=== PATIENT | female | born 1960 ===

== ENCOUNTER 2017-06-08 09:34 | Emergency (ER) | payer BC, OTHER ==
[2017-06-08 10:11] VITALS: BP 155/92
[2017-06-08] MEDS ORDERED: HYDROcodone/ACETAMIN 5-325 MG* 1 TAB PO ONE (10:17)
[2017-06-08] MEDS ORDERED: Tetan/Diph/Pertus SYR(Tdap)* 0.5 ML SYR(BOOSTRIX) use SYR IM ONE (10:18)
--- NOTE | 2017-06-08 10:19 | UC ---
Hand/Wrist HPI - HPI Summary HPI Summary: got right wrist caught in school bus door this morning pain abd swelling with small abrasion (unsure date of last tetanus) - History Of Current Complaint Chief Complaint: UCUpperExtremity Stated Complaint: RT HAND COMPLAINT W/C Time Seen by Provider: 06/08/17 10:13 Hx Obtained From: Patient Hx Last Menstrual Period: 2007 ?: No Mechanism Of Injury: crush injury Onset/Duration: Sudden Onset, Lasting Hours Severity Initially: Severe Severity Currently: Severe Pain Intensity: 10 Pain Scale Used: 0-10 Numeric Character Of Pain: Aching, Throbbing Aggravating Factor(s): Movement Alleviating Factor(s): Nothing Associated Signs And Symptoms: Positive: Swelling, Bruising Related History: Dominant Hand Right - Allergies/Home Medications Allergies/Adverse Reactions: Allergies Allergy/AdvReac Type Severity Reaction Status Date / Time Sulfa (Sulfonamide Allergy Hives Verified 06/08/17 10:00 Antibiotics) sea food Allergy Intermediate Hives Uncoded 06/08/17 10:00 PMH/Surg Hx/FS Hx/Imm Hx Previously Healthy: No Psychological History: Depression - Surgical History Surgical History: Yes Surgery Procedure, Year, and Place: 1979-KIDNEY SURGERY. TONSILS- 1975. GALLBLADDER-2006. -&TUBAL-2002. RIGHT BREAST MASTECTOMY-2007,. bariatric surgery. RIGHT WRIST SX--2015 - Family History Known Family History: Positive: None - Social History Occupation: Employed Part-time Lives: With Family Alcohol Use: Occasionally Substance Use Type: None Smoking Status (MU): Never Smoked Tobacco - Immunization History Most Recent Influenza Vaccination: 11/2013 had mist Hx Tetanus, Diphtheria Vaccination: Yes Vaccination Up to Date: Yes Review of Systems Constitutional: Negative Skin: Bruising - right wrist,, Other - skin abrasion right wrist/thumb Eyes: Negative ENT: Negative Respiratory: Negative Cardiovascular: Negative Gastrointestinal: Negative Genitourinary: Negative Motor: Negative Neurovascular: Negative Musculoskeletal: Arthralgia - right wrist Neurological: Negative Psychological: Negative Is Patient Immunocompromised?: No All Other Systems Reviewed And Are Negative: Yes Physical Exam Triage Information Reviewed: Yes Appearance: Well-Appearing, Well-Nourished, Pain Distress Vital Signs: Initial Vital Signs Temp 98.6 F 06/08/17 10:02 Pulse 74 06/08/17 10:02 Resp 18 06/08/17 10:02 BP 155/92 06/08/17 10:02 Pulse Ox 98 06/08/17 10:02 Vital Signs Reviewed: Yes Eye Exam: Normal Eyes: Positive: Conjunctiva Clear ENT Exam: Normal ENT: Positive: Normal ENT inspection, Hearing grossly normal. Negative: Trismus , Muffled voice, Hoarse voice Dental Exam: Normal Neck exam: Normal Neck: Positive: Supple, Nontender Respiratory Exam: Normal Respiratory: Positive: Chest non-tender, No respiratory distress, No accessory muscle use Cardiovascular Exam: Normal Cardiovascular: Positive: RRR, Pulses Normal, Brisk Capillary Refill Musculoskeletal Exam: Normal Musculoskeletal: Positive: Strength Intact, ROM Intact, Edema @ - radial side of right wrist Neurological Exam: Normal Psychological Exam: Normal Skin Exam: Other Skin: Positive: Other - abrasion right thumb Diagnostics - Radiology No standard instances Xray Interpretation: No Acute Changes Radiology Interpretation Completed By: ED Physician, Radiologist Hand/Wrist Course/Dx - Course Course Of Treatment: greer, splint, up date tetanus, rice, ibuprofen, follow with ortho prn and follow blood pressure with pcp - Differential Dx/Diagnosis Provider Diagnoses: right wrist contusion and abrasion, up date tetanus, elevated blood pressure with out dx of hyperetension Discharge - Discharge Plan Condition: Stable Disposition: HOME Patient Education Materials: Ibuprofen (By mouth), Contusion in Adults (ED), Abrasion (ED), Hypertension (ED) Referrals: German Smiley MD [Medical Doctor] - If Needed Tani Coyle DO [Primary Care Provider] - 2 Weeks
--- NOTE | 2017-06-08 10:43 | RAD ---
INDICATION: Right hand injury. TECHNIQUE: 4 views of the right hand were obtained. FINDINGS: There is lateral soft tissue swelling. The bones are normal alignment. No fracture is seen. 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 IMPRESSION: NO EVIDENCE FOR FRACTURE, IF THE PATIENT'S SYMPTOMS PERSIST RECOMMEND FOLLOW-UP IMAGING.
== END 2017-06-08 11:11 | disposition home or self-care (01) ==
LOC: UCCORT 09:34
DX: S60.811A Abrasion of right wrist, initial encounter (principal); W23.0XXA Caught, crushed, jammed, or pinched between moving objects, initial encounter; Y93.9 Activity, unspecified; Y92.811 Bus as the place of occurrence of the external cause; Z23 Encounter for immunization; R03.0 Elevated blood-pressure reading, without diagnosis of hypertension; Z88.2 Allergy status to sulfonamides; Z91.013 Allergy to seafood
CPT/HCPCS: 90471; 90715; 99213; G0463

== ENCOUNTER → 2018-09-05 06:21 | Day surgery (SDC) | payer BC ==
[~2018-09-05 06:21] MED LIST: Buffered Lidocaine 1% SYRIN* 1 ML/SYRINGE INTRADERM ONE; Bupivacaine 0.25% SDV PF* 10 ML VIAL INJ ONE; Lactated Ringers 1000 ML Bag* 1,000 ML IV SCH; Midazolam* 1 MG/ML 5 ML VIAL (5 MG) ONE; Naloxone* 0.4 MG/ML 1 ML VIAL IV PRN; fentaNYL* 50 MCG/ML 2 ML VIAL (100 MCG VIAL) ONE
[2018-09-05 08:52] VITALS: BP 140/70
--- NOTE | 2018-09-05 16:01 | OP ---
DATE OF OPERATION: 09/05/18 [facility] DATE OF : 56 SURGEON: Chepe An MD. SHANK CEMENTER HAND: BETH Naylor. ANESTHESIOLOGIST: Dr. aVrela. ANESTHESIA: Local MAC. PRE-OP DIAGNOSIS: Left long finger mucous cyst. POST-OP DIAGNOSIS: Left long finger mucous cyst. OPERATIVE PROCEDURE: Excision of left long finger mucous cyst. ESTIMATED BLOOD LOSS: 10 mL. COMPLICATIONS: None. FINDINGS: See above and below. INDICATIONS: Akilah has the aforementioned cyst. We talked about the risks and benefits. She wanted to proceed with surgery. DESCRIPTION OF PROCEDURE: Akilah was seen in the preoperative holding area. The correct side and site of the procedure were identified. We came back to the operating room and I performed a digital block with 0.25% plain Marcaine. The arm was prepped and draped in the usual fashion. A time-out was performed. I placed a finger tourniquet on the finger. I made a T-shaped incision over the ulnar aspect of the joint, where the cyst was. The mucous cyst was peeled off of the paratenon, to which it was superficial and that was tracked back down to the gutter just adjacent to the terminal extensor tendon next to the collateral ligament. It was amputated there with a Bovie cautery device. The capsule there was cauterized. Everything was cleaned up. At this point, the finger was looking good. The wound was irrigated out. Skin was closed with 4- 0 nylon suture. Soft dressing was applied. Finger tourniquet was removed. She was taken to the recovery room in stable condition. [id number]/[facility] #: [id number] F F THOMPSON HOSPITALRobin
== END | disposition home or self-care (01) ==
LOC: OREAST 06:21
PROVIDERS: ATTEND Orthopaedic Surgery Hand Surgery
DX: M67.442 Ganglion, left hand (principal); Z85.3 Personal history of malignant neoplasm of breast; F41.8 Other specified anxiety disorders; E66.9 Obesity, unspecified
CPT/HCPCS: 88304; J2250; J3010; J3490

== ENCOUNTER 2019-03-28 13:12 | Emergency (ER) | payer BC ==
--- OUTSIDE RECORDS SUMMARY | 2019-03-28 14:47 | XMS REPORT | Continuity of Care Document ---
:1960 External Reference #:[id number] Author Name Scout Echavarria (transmitted by agent of provider Tani Coyle) Address [address] [place] [address] Care Team Providers Name Role Phone HCP/LW on file Care Team Information Gift Manager Unavailable Ha Alas MD - Gastroenterology Care Team Information Gift Manager Problems Active Problems Provider Date Allergic rhinitis due to pollen Scout Echavarria Onset: 09/01/2013 Moderate recurrent major depression Tani Coyle D.O. Onset: 01/22/2014 Social History Type Date Description Comments Sex Unknown Tobacco Use Reviewed: 03/20/14 Denies Cigarette Use Smoking Status Reviewed: 03/21/19 Denies Cigarette Use ETOH Use Occassional Alcohol Recreational Drug Use Current Drug User Tobacco Use Start: Unknown Patient has never smoked Sun Exposure Uses sunscreen Allergies, Adverse Reactions, Alerts Active Allergies Reaction Severity Comments Date Sulfa Rash 09/01/2013 Seafood Urticaria shellfish 09/01/2013 Iodine 11/15/2013 Medications Active Medications SIG Qnty Indications Ordering Provider Date Lisinopril 1 by mouth every 90tabs R03.0 Chaz Jacques, 03/21/2019 5mg Tablets day M.D. Triamcinolone apply 2-3 times 15gm L29.8 Chaz Jacques, 03/21/2019 Acetonide a day M.D. 0.5% Cream Fluticasone Propionate two sprays (50 16gm J01.00 Chaz Jacques, 2018 mcg/spray) per M.D. 50mcg/Act Suspension nostril once daily Probiotics one po daily Unknown 12/30/2017 Vitamin B-12 1 daily Unknown 04/11/2015 1000mcg (sublingually) Tablets Sub Venlafaxine HCL ER Take 1 Capsule 90caps Chaz Jacques, 09/22/2013 150mg By Mouth Every M.D. Caps ER 24HR Day Dianelys Allergy 1 po qd, prn OTC Unknown 180mg Tablets History Medications Amoxicillin/Clavulanate 1 twice a 20tabs J01.00 Sawyer, 01/13/2019 - Potassium day x 10 Sirena Ware 03/20/2019 875-125mg Tablets days Immunizations CPT Code Status Date Vaccine Lot # [id number] Given 11/19/2018 Influenza Virus Vaccine, Quadrivalent, Split, Preservative Free 73842 Given 12/31/2017 Influenza Virus Vaccine, Quadrivalent, Split, [id number] Preservative Free 47309 Given 01/01/2017 Influenza Virus Vaccine, Quadrivalent, Split, [id number] Preservative Free 04091 Given 2015 Influenza Virus Vaccine, Quadrivalent, Split, [id number] Preservative Free 97199 Given 12/29/2014 Influenza Virus Vaccine, Quadrivalent, Split, [id number] Preservative Free 27201 Given 04/17/2014 Zostavax [id number] 49938 Given 12/10/2013 flu mist - live influenza virus vaccine for intranasal use U-Td Given 08/06/2013 Td(Adult),Unspecified 41272 Ordered 09/01/2009 Adacel or Boostrix, TDaP [id number] Ordered 01/01/2013 Flu, Split Virus 3Yrs Vital Signs Date Vital Result Comment 03/21/2019 2:51pm BP Systolic 164 mmHg BP Diastolic 100 mmHg BP Systolic Recheck 150 mmHg BP Diastolic Recheck 90 mmHg Height 61.5 inches 5'1.50" Weight 168.00 lb BMI (Body Mass Index) 31.2 kg/m2 01/13/2019 2:09pm BP Systolic 134 mmHg BP Diastolic 94 mmHg BP Systolic Recheck 134 mmHg BP Diastolic Recheck 88 mmHg Body Temperature 98.2 F Results Test Acquired Date Facility Test Result H/L Range Note Laboratory test 03/21/2019 [facility] <pending> finding [phone] U[facility] Inhouse 03/21/2019 In House Ua Glucose - 1 Ua Bilirubin - Ua Ketones - Ua Specific [place] 1.030 Ua Blood 2+ Ua PH 6.0 Ua Protein tr Ua Urobilinogen - Ua Nitrite - Ua Leukocytes tr Culture Urine 03/21/2019 In House Colonies 12/24 mixed Inhouse Order 03/21/2019 [facility] Occult Blood, F I T <pending> (Fecal Immunochemical Test) 1 void, clear, yellow Procedures Date Code Description Status 02/04/2018 [id number] Mammogram Completed 02/22/49 [id number] Colonoscopy Completed Medical Devices Description No Information Available Encounters Type Date Location Provider Dx Diagnosis Office Visit 01/13/2019 Main Office Yodit Griffiths J01.00 Acute maxillary 2:00p P.A. sinusitis, unspecified Assessments Date Code Description Provider 03/21/2019 L29.8 Other pruritus Yodit Griffiths P.A. 03/21/2019 R03.0 Elevated blood-pressure reading, without Yodit Griffiths, P.A. diagnosis of hypertension 03/21/2019 Z12.11 Encounter for screening for malignant neoplasm Yodit Griffiths P.A. of colon 03/21/2019 Z98.84 Bariatric surgery status Yodit Griffiths P.A. 03/21/2019 D26.0 Other benign neoplasm of cervix uteri Yodit Griffiths P.A. 03/21/2019 Z00.01 Encounter for general adult medical examination Yodit Griffiths P.A. with abnormal findings 03/21/2019 R31.9 Hematuria, unspecified Yodit Griffiths, P.A. 03/21/2019 Z68.31 Body mass index (BMI) 31.0-31.9, adult Yodit Griffiths, P.A. 01/13/2019 J01.00 Acute maxillary sinusitis, unspecified Yodit Griffiths, P.A. Plan of Treatment Future Appointment(s):05/01/2019 9:45 am - Marjorie Summers PA at Main Hngsjg4207/2017 - Yodit Griffiths P.A.Z01.818 Encounter for other preprocedural examinationComments:Patient is low risk for surgery planned.they have no prior anaesthetic related complications.they are advised to inform their surgeon of any acute illness which may occur between now and surgical date. Pre operative labs are not available to me as of this date. the surgeon and anaesthetist will need to review these prior to surgery and notify me of any questions Cleared for planned surgery.N20.0 Calculus of yrfdgtU71.84 Bariatric surgery status Functional Status Description No Information Available Mental Status Description No Information Available Referrals Refer to Reason for Referral Status Appt Date Ha Alas MD screening colonscopy Consult and Testing - Sent Specialist [facility] [address] [address] [phone] [facility] pt wants to go to Dr. Huitron who is Created now with N for color paste mixer consult for significant size Nabothian cyst [address] [place] [address] [phone]
--- OUTSIDE RECORDS SUMMARY | 2019-03-28 14:47 | XMS REPORT | Continuity of Care Document ---
:1960 External Reference #:[id number] Author Name Scout Echavarria (transmitted by agent of provider Tani Coyle) Address [address] [place] [address] Care Team Providers Name Role Phone HCP/LW on file Care Team Information Line Pilot Unavailable Ha Alas MD - Gastroenterology Care Team Information Line Pilot Problems Active Problems Provider Date Allergic rhinitis due to pollen Scout Echavarria Onset: 09/01/2013 Moderate recurrent major depression Tani Coyel D.O. Onset: 01/22/2014 Social History Type Date [...] CPT Code Status Date Vaccine Lot # [id number] Given 11/19/2018 Influenza Virus Vaccine, Quadrivalent, Split, Preservative Free 67400 Given 12/31/2017 Influenza Virus Vaccine, Quadrivalent, Split, [id number] Preservative Free 80092 Given 01/01/2017 Influenza Virus Vaccine, Quadrivalent, Split, [id number] Preservative Free 98060 Given 2015 Influenza Virus Vaccine, Quadrivalent, Split, [id number] Preservative Free 66848 Given 12/29/2014 Influenza Virus Vaccine, Quadrivalent, Split, [id number] Preservative Free 42295 Given 04/17/2014 Zostavax [id number] 52807 Given 12/10/2013 flu mist - live influenza virus vaccine for intranasal use U-Td Given 08/06/2013 Td(Adult),Unspecified 82936 Ordered 09/01/2009 Adacel or Boostrix, TDaP 40381 Ordered 01/01/2013 Flu, Split Virus 3Yrs Vital [...] Result H/L Range Note Laboratory test 03/21/2019 [facility] <pending> finding [phone] Ua Inhouse 03/21/2019 In House Ua Glucose - 1 Ua Bilirubin - Ua Ketones - Ua Specific [place] 1.030 Ua Blood 2+ Ua PH 6.0 Ua Protein tr Ua Urobilinogen - Ua Nitrite - Ua Leukocytes tr Culture Urine 03/21/2019 In House Colonies 12/24 mixed Inhouse Order 03/21/2019 [facility] Occult Blood, F I T <pending> (Fecal Immunochemical Test) 1 void, clear, yellow Procedures Date Code Description Status 02/04/2018 [id number] Mammogram Completed 02/22/49 [id number] Colonoscopy Completed Medical Devices Description No Information Available Encounters Type Date Location Provider Dx Diagnosis Office Visit 01/13/2019 Main Office Yodit Griffiths J01.00 Acute maxillary 2:00p P.A. sinusitis, unspecified Assessments Date Code Description Provider 03/21/2019 L29.8 Other pruritus Yodit Griffiths P.ARadha 03/21/2019 R03.0 Elevated blood-pressure reading, without Yodit Griffiths P.ARadha diagnosis of hypertension 03/21/2019 Z12.11 Encounter for screening for malignant neoplasm Scout Echavarria of colon 03/21/2019 Z98.84 Bariatric surgery status Yodit Griffiths P.A. 03/21/2019 D26.0 Other benign neoplasm of cervix uteri Yodit Griffiths P.ARadha 03/21/2019 Z00.01 Encounter for general adult medical examination Scout Echavarria with abnormal findings 03/21/2019 R31.9 Hematuria, unspecified Yodit Griffiths P.A. 03/21/2019 Z68.31 Body mass index (BMI) 31.0-31.9, adult Yodit Griffiths P.A. 01/13/2019 J01.00 Acute maxillary sinusitis, unspecified Yodit Griffiths P.A. Plan of Treatment Future Appointment(s):05/01/2019 9:45 am - Marjorie Summers PA at Main [id number] - Scout EchavarriaL29.8 Other pruritusNew Medication:Triamcinolone Acetonide 0.5 % - apply 2-3 times a dayFollow up:let me know if the steroid cream is expensive, can try over the counter 1% cortisone cream stop cream as rash resolves use thick cream or emollient agent like Aquaphor when gnihzmyxK65.0 Elevated blood-pressure reading, without diagnosis of hypertensionNew Medication:Lisinopril 5 mg - 1 by mouth every dayFollow up:6 weeks, try keeping some BPs at homeZ12.11 Encounter for screening for malignant neoplasm of colonReferral:Ha Alas MD, GastroenterologyFollow up:return FIT this by end of yearZ98.84 Bariatric surgery statusFollow up:look into when your last tetanus show wasD26.0 Other benign neoplasm of cervix uteriComments: Looks like 0.75 cm Nabothian cystReferral:[facility] [place], chief cruiser/ Phys/YhakgA47.01 Encounter for general adult medical examination with abnormal dtwimhljR29.9 Hematuria, nueefbxskgqD25.31 Body mass index (BMI) 31.0-31.9, adult Functional Status Description No Information Available Mental Status Description No Information Available Referrals Refer to Dr Reason for Referral Status Appt Date Ha Alas MD screening colonscopy Consult and Testing - Sent Specialist decides [facility] [address] [address] [phone] [facility] pt wants to go to Dr. Huitron who is Created now with N for ob/gyn physician consult for significant size Nabothian cyst [address] [place] [id number] [phone]
--- OUTSIDE RECORDS SUMMARY | 2019-03-28 14:47 | XMS REPORT | Continuity of Care Document ---
:1960 External Reference #:[id number] Author Name Scout Echavarria (transmitted by agent of provider Tani Coyle) Address [address] [place] [address] Care Team Providers Name Role Phone HCP/LW on file Care Team Information Mine Expert Unavailable Ha Alas MD - Gastroenterology Care Team Information Mine Expert [phone] Problems Active Problems Provider Date Allergic rhinitis [...] CPT Code Status Date Vaccine Lot # [id number] Given 11/19/2018 Influenza Virus Vaccine, Quadrivalent, Split, Preservative Free 12037 Given 12/31/2017 Influenza Virus Vaccine, Quadrivalent, Split, [id number] Preservative Free 01051 Given 01/01/2017 Influenza Virus Vaccine, Quadrivalent, Split, [id number] Preservative Free 05124 Given 2015 Influenza Virus Vaccine, Quadrivalent, Split, [id number] Preservative Free 89632 Given 12/29/2014 Influenza Virus Vaccine, Quadrivalent, Split, [id number] Preservative Free 34396 Given 04/17/2014 Zostavax [id number] 24048 Given 12/10/2013 flu mist - live influenza virus vaccine for intranasal use U-Td Given 08/06/2013 Td(Adult),Unspecified 72194 Ordered 09/01/2009 Adacel or Boostrix, TDaP 46071 Ordered 01/01/2013 Flu, Split Virus 3Yrs Vital [...] Result H/L Range Note Laboratory test 03/21/2019 [facility] <pending> finding [phone] Ua Inhouse 03/21/2019 In House Ua Glucose - 1 Ua Bilirubin - Ua Ketones - Ua Specific [place] 1.030 Ua Blood 2+ Ua PH 6.0 Ua Protein tr Ua Urobilinogen - Ua Nitrite - Ua Leukocytes tr Culture Urine 03/21/2019 In House Colonies 12/24 mixed Inhouse Order 03/21/2019 [facility] Occult Blood, F I T <pending> (Fecal Immunochemical Test) 1 void, clear, yellow Procedures Date Code Description Status 02/04/2018 [id number] Mammogram Completed 02/22/49 [id number] Colonoscopy Completed Medical Devices Description No Information [...] 01/13/2019 J01.00 Acute maxillary sinusitis, unspecified Yodit Penale, P.A. Plan of Treatment Future Appointment(s):05/01/2019 9:45 am - Marjorie Summers PA at Main Lgdfll9710/2017 - Yodit Griffiths P.A.D48.5 Neoplasm of uncertain behavior of skinReferral:Lidia Daugherty MD, Surgery,OrthopedicFollow up:Can ask dermotologist about whether they will remove this mucoid cyst, or we can have you go hand specialist. Dr Daugherty with [facility], and I think she goes to [place] office sometimes.N20.0 Calculus of dtszytH77 Encounter for immunizationComments:Counseling done regarding risks and benefits of fuy vaccine , previous vaccine reactions and possiblecontraindications to vaccine discussed , and pt's questions answered. Pt agreed to vaccination. VISsheets given. Functional Status Description No Information Available Mental Status Description No Information Available Referrals Refer to Dr Reason for Referral Status Appt Date Ha Alas MD screening colonscopy Consult and Testing - Sent Specialist decides [facility] [address] [address] [phone] [facility] [place] pt wants to go to Dr. Huitron who is Created now with [facility] for head of mathematics consult for significant size Nabothian cyst [address] [place] [address] [phone]
--- OUTSIDE RECORDS SUMMARY | 2019-03-28 14:47 | XMS REPORT | Continuity of Care Document ---
:1960 External Reference #:[id number] Author Name Scout Echavarria (transmitted by agent of provider Tani Coyle) Address [address] [place] [address] Care Team Providers Name Role Phone HCP/LW on file Care Team Information Infection Prevention Coordinator Unavailable Ha Alas MD - Gastroenterology Care Team Information Infection Prevention Coordinator [phone] Problems Active Problems Provider Date Allergic rhinitis [...] CPT Code Status Date Vaccine Lot # [id number] Given 11/19/2018 Influenza Virus Vaccine, Quadrivalent, Split, Preservative Free 20596 Given 12/31/2017 Influenza Virus Vaccine, Quadrivalent, Split, [id number] Preservative Free 20291 Given 01/01/2017 Influenza Virus Vaccine, Quadrivalent, Split, [id number] Preservative Free 28871 Given 2015 Influenza Virus Vaccine, Quadrivalent, Split, [id number] Preservative Free 37760 Given 12/29/2014 Influenza Virus Vaccine, Quadrivalent, Split, [id number] Preservative Free 16101 Given 04/17/2014 Zostavax [id number] 02907 Given 12/10/2013 flu mist - live influenza virus vaccine for intranasal use U-Td Given 08/06/2013 Td(Adult),Unspecified 62543 Ordered 09/01/2009 Adacel or Boostrix, TDaP [id number] Ordered 01/01/2013 Flu, Split Virus 3Yrs Vital [...] Result H/L Range Note Laboratory test 03/21/2019 [facility] <pending> finding [phone] Ua Inhouse 03/21/2019 In House Ua Glucose - 1 Ua Bilirubin - Ua Ketones - Ua Specific [place] 1.030 Ua Blood 2+ Ua PH 6.0 Ua Protein tr Ua Urobilinogen - Ua Nitrite - Ua Leukocytes tr Culture Urine 03/21/2019 In House Colonies 12/24 mixed Inhouse Order 03/21/2019 [facility] Occult Blood, F I T <pending> (Fecal Immunochemical Test) 1 void, clear, yellow Procedures Date Code Description Status 02/04/2018 [id number] Mammogram Completed 02/22/49 [id number] Colonoscopy Completed Medical Devices Description No Information [...] am - Marjorie Summers PA at Main [id number] - Scout EchavarriaL29.8 Other pruritusNew Medication:Triamcinolone Acetonide 0.5 % - apply 2-3 times a dayFollow up:let me know if the steroid cream is expensive, can try over the counter 1% cortisone cream stop cream as rash resolves use thick cream or emollient agent like Aquaphor when rboppxxnD16.0 Elevated blood-pressure reading, without diagnosis of hypertensionNew [...] cervix uteriComments: Looks like 0.75 cm Nabothian cystReferral:[facility] [place], cushion assembler/ Phys/XwhjpE98.01 Encounter for general adult medical examination with abnormal cnlnkewgL77.9 Hematuria, hdbqjwjxihiE63.31 Body mass index (BMI) 31.0-31.9, adult Functional Status Description No Information Available Mental Status Description No Information Available Referrals Refer to Dr Reason for Referral Status Appt Date Ha Alas MD screening colonscopy Consult and Testing - Sent Specialist decides [facility] [address] [address] [phone] [facility] pt wants to go to Dr. Huitron who is Created now with N for job placement specialist consult for significant size Nabothian cyst [address] [place] [id number] [phone]
--- OUTSIDE RECORDS SUMMARY | 2019-03-28 14:47 | XMS REPORT | Continuity of Care Document ---
:1960 External Reference #:[id number] Author Name Scout Echavarria (transmitted by agent of provider Tani Coyle) Address [address] [place] [address] Care Team Providers Name Role Phone HCP/LW on file Care Team Information Cofounder Unavailable Ha Alas MD - Gastroenterology Care Team Information Cofounder [phone] Problems Active Problems Provider Date Allergic rhinitis [...] CPT Code Status Date Vaccine Lot # [id number] Given 11/19/2018 Influenza Virus Vaccine, Quadrivalent, Split, Preservative Free 28903 Given 12/31/2017 Influenza Virus Vaccine, Quadrivalent, Split, [id number] Preservative Free 44348 Given 01/01/2017 Influenza Virus Vaccine, Quadrivalent, Split, [id number] Preservative Free 35676 Given 2015 Influenza Virus Vaccine, Quadrivalent, Split, [id number] Preservative Free 15611 Given 12/29/2014 Influenza Virus Vaccine, Quadrivalent, Split, [id number] Preservative Free 41580 Given 04/17/2014 Zostavax [id number] 15784 Given 12/10/2013 flu mist - live influenza virus vaccine for intranasal use U-Td Given 08/06/2013 Td(Adult),Unspecified [id number] Ordered 09/01/2009 Adacel or Boostrix, TDaP [id number] Ordered 01/01/2013 Flu, Split Virus 3Yrs Vital [...] Result H/L Range Note Laboratory test 03/21/2019 [facility] <pending> finding [phone] Ua Inhouse 03/21/2019 In House Ua Glucose - 1 Ua Bilirubin - Ua Ketones - Ua Specific [place] 1.030 Ua Blood 2+ Ua PH 6.0 Ua Protein tr Ua Urobilinogen - Ua Nitrite - Ua Leukocytes tr Culture Urine 03/21/2019 In House Colonies 12/24 mixed Inhouse Order 03/21/2019 [facility] Occult Blood, F I T <pending> (Fecal Immunochemical Test) 1 void, clear, yellow Procedures Date Code Description Status 02/04/2018 [id number] Mammogram Completed [birth year] [id number] Colonoscopy Completed Medical Devices Description No Information [...] am - Marjorie Summers PA at [facility] [id number] - Scout EchavarriaL29.8 Other pruritusNew Medication:Triamcinolone Acetonide 0.5 % - apply 2-3 times a dayFollow up:let me know if the steroid cream is expensive, can try over the counter 1% cortisone cream stop cream as rash resolves use thick cream or emollient agent like Aquaphor when pqwuqlpqD08.0 Elevated blood-pressure reading, without diagnosis of hypertensionNew [...] cervix uteriComments: Looks like 0.75 cm Nabothian cystReferral:[facility], procedures tech/ Phys/GgvsnS47.01 Encounter for general adult medical examination with abnormal mzwqrarfV32.9 Hematuria, ikbxzkatrkwV66.31 Body mass index (BMI) 31.0-31.9, adult Functional Status Description No Information Available Mental Status Description No Information Available Referrals Refer to Dr Reason for Referral Status Appt Date Ha Alas MD screening colonscopy Consult and Testing - Sent Specialist [facility] [address] [address] [phone] [facility] pt wants to go to Dr. Huitron who is Created now with N for office machine servicer consult for significant size Nabothian cyst [address] [id number] [phone]
--- OUTSIDE RECORDS SUMMARY | 2019-03-28 14:47 | XMS REPORT | Continuity of Care Document ---
:1960 External Reference #:[id number] Author Name Scout Echavarria (transmitted by agent of provider Tani Coyle) Address [address] [place] [address] Care Team Providers Name Role Phone HCP/LW on file Care Team Information Supervisor Hot [employer] Tinning Unavailable Ha Alas MD - Gastroenterology Care Team Information Supervisor [employer] [phone] Problems Active Problems Provider Date Allergic rhinitis [...] CPT Code Status Date Vaccine Lot # [id number] Given 11/19/2018 Influenza Virus Vaccine, Quadrivalent, Split, Preservative Free 68448 Given 12/31/2017 Influenza Virus Vaccine, Quadrivalent, Split, [id number] Preservative Free 56090 Given 01/01/2017 Influenza Virus Vaccine, Quadrivalent, Split, [id number] Preservative Free 42319 Given 2015 Influenza Virus Vaccine, Quadrivalent, Split, [id number] Preservative Free 01227 Given 12/29/2014 Influenza Virus Vaccine, Quadrivalent, Split, [id number] Preservative Free 82827 Given 04/17/2014 Zostavax [id number] 20186 Given 12/10/2013 flu mist - live influenza virus vaccine for intranasal use U-Td Given 08/06/2013 Td(Adult),Unspecified 00897 Ordered 09/01/2009 Adacel or Boostrix, TDaP [id number] Ordered 01/01/2013 Flu, Split Virus 3Yrs Vital [...] Result H/L Range Note Laboratory test 03/21/2019 [facility] <pending> finding [phone] Ua Inhouse 03/21/2019 In House Ua Glucose - 1 Ua Bilirubin - Ua Ketones - Ua Specific [place] 1.030 Ua Blood 2+ Ua PH 6.0 Ua Protein tr Ua Urobilinogen - Ua Nitrite - Ua Leukocytes tr Culture Urine 03/21/2019 In House Colonies 12/24 mixed Inhouse Order 03/21/2019 [facility] Occult Blood, F I T <pending> (Fecal Immunochemical Test) 1 void, clear, yellow Procedures Date Code Description Status 02/04/2018 [id number] Mammogram Completed 02/22/49 [id number] Colonoscopy Completed Medical Devices Description No Information [...] Z00.01 Encounter for general adult medical examination Bora Echavarria.Moris with abnormal findings 03/21/2019 R31.9 Hematuria, unspecified Yodit Griffiths P.A. 03/21/2019 Z68.31 Body mass index (BMI) 31.0-31.9, adult Yodit Griffiths P.A. 01/13/2019 J01.00 Acute maxillary sinusitis, unspecified Yodit Griffiths P.A. Plan of Treatment Future Appointment(s):05/01/2019 9:45 am - Marjorie Summers PA at [facility] [id number] - Scout EchavarriaJ01.90 Acute sinusitis, unspecifiedNew Medication: Amoxicillin 875 mg - 1 by mouth twice a day x 10 days for sinusitisFollow up: use the dbgcdveA90.3 FlatulenceComments:disucssed possible causes and approaches to assess. pt will see how Beano works, will monitor diet more closely, discussed can be days btw what she eats and the bloating/gasFollow up: I would try Beano available over the counter and see if it improves mquplhW25.0 Elevated blood-pressure reading, without diagnosis of hypertension Functional Status Description No Information Available Mental Status Description No Information Available Referrals Refer to Reason for Referral Status Appt Date Ha Alas MD screening colonscopy Consult and Testing - Sent Specialist [facility] [address] [address] [phone] [facility] [place] pt wants to go to Dr. Huitron who is Created now with N for crew chief consult for significant size Nabothian cyst [address] [place] [address] [phone]
[2019-03-28 15:07] VITALS: BP 152/86
--- NOTE | 2019-03-28 15:32 | UC ---
Throat Pain/Nasal Jace HPI - HPI Summary HPI Summary: 58-year-old woman comes in with a chief complaint of sore throat. She's had upper respiratory tract infection symptoms for more than a week. Over the last day she developed sore throat and has been exposed to people with strep throat. It hurts to swallow. She has sinus pressure rhinorrhea is yellow. No complaint of any shortness breath. - History of Current Complaint Chief Complaint: UCGeneralIllness Stated Complaint: SORE THROAT SINUS Time Seen by Provider: 03/28/19 14:53 Hx Last Menstrual Period: 2007 Pain Intensity: 8 - Allergies/Home Medications Allergies/Adverse Reactions: Allergies Allergy/AdvReac Type Severity Reaction Status Date / Time Sulfa (Sulfonamide Allergy Hives Verified 03/28/19 15:08 Antibiotics) sea food Allergy Intermediate Hives Uncoded 03/28/19 15:08 PMH/Surg Hx/FS Hx/Imm Hx Previously Healthy: Yes - Surgical History Surgical History: Yes Surgery Procedure, Year, and Place: 1979-KIDNEY SURGERY. TONSILS- 1975. GALLBLADDER-2006. -&TUBAL-2002. RIGHT BREAST MASTECTOMY-2007,. bariatric surgery. RIGHT WRIST SX--2015. LEFT KIDNEY SURGERY FOR STONES AND [id number] - Family History Known Family History: Positive: None - Social History Alcohol Use: Daily Alcohol Amount: 1 DAILY Substance Use Type: None Smoking Status (MU): Never Smoked Tobacco Have You Smoked in the Last Year: No - Immunization History Most Recent Influenza Vaccination: 11/2013 had mist Hx Tetanus, Diphtheria Vaccination: Yes Vaccination Up to Date: Yes Review of Systems All Other Systems Reviewed And Are Negative: Yes Constitutional: Positive: Other - SEE HPI Skin: Positive: Negative Eyes: Positive: Negative ENT: Positive: Sore Throat, Nasal Discharge, Sinus Congestion Respiratory: Positive: Negative Cardiovascular: Positive: Negative Gastrointestinal: Positive: Negative Motor: Positive: Negative Neurovascular: Positive: Negative Musculoskeletal: Positive: Negative Neurological: Positive: Negative Psychological: Positive: Negative Is Patient Immunocompromised?: No Physical Exam Triage Information Reviewed: Yes Appearance: No Pain Distress, Well-Nourished, Ill-Appearing - MILD Vital Signs: Initial Vital Signs Temp 98.2 F 03/28/19 15:03 Pulse 80 03/28/19 15:03 Resp 16 03/28/19 15:03 BP 152/86 01/03/20 15:03 Pulse Ox 100 03/28/19 15:03 Vital Signs Reviewed: Yes Eye Exam: Normal Eyes: Positive: Conjunctiva Clear ENT: Positive: Pharyngeal erythema, Nasal congestion, Nasal drainage, TMs normal Neck: Positive: Supple Respiratory: Positive: Lungs clear, Normal breath sounds, No respiratory distress Cardiovascular: Positive: RRR Musculoskeletal: Positive: Strength Intact, ROM Intact Neurological: Positive: Alert, Muscle Tone Normal Psychological: Positive: Age Appropriate Behavior Skin Exam: Normal Throat Pain/Nasal Course/Dx - Course Course Of Treatment: DISCUSSED VIRAL VERSES BACTERIAL INFECTIONS AND THE ROLE OF ANTIBIOTICS. THE PATIENT PREFERS TO BE ON ANTIBIOTICS AT THIS TIME. - Differential Dx/Diagnosis Provider Diagnosis: Sinusitis, Pharyngitis Discharge ED - Sign-Out/Discharge Documenting (check all that apply): Patient Departure All imaging exams completed and their final reports reviewed: No Studies - Discharge Plan Condition: Stable Disposition: HOME Prescriptions: Amoxicillin PO (*) [Amoxicillin 875 MG (*)] 875 mg PO BID #20 tab Patient Education Materials: Pharyngitis (ED), Sinusitis (ED) Referrals: Tani Coyle DO [Primary Care Provider] - Additional Instructions: FOLLOW UP WITH YOUR DOCTOR IF NOT COMPLETELY IMPROVED. GET REEVALUATED SOONER IF NOT IMPROVING OR WORSE OR ANY QUESTIONS OR CONCERNS. - Billing Disposition and Condition Condition: STABLE Disposition: Home
== END 2019-03-28 15:43 | disposition home or self-care (01) ==
LOC: UCCORT 13:12
DX: J32.9 Chronic sinusitis, unspecified (principal); J02.9 Acute pharyngitis, unspecified; Z88.2 Allergy status to sulfonamides; Z91.013 Allergy to seafood
CPT/HCPCS: 87651; 99212; G0463